=== PATIENT | female | born 1945 | race Caucasian/White ===

== ENCOUNTER 2022-08-31 15:38 | Inpatient (IN) | payer MEDICARE ==
[~2022-08-31] VITALS: Ht 154.9 cm; Wt 66.2 kg
[2022-08-31 18:59] LABS: BASOPHILS ABSOLUTE AUTO 0.04 K/mm3 (0.00-0.23); BASOPHILS PERCENT AUTO 0 % (0-2); EOSINOPHILS ABSOLUTE AUTO 0.14 K/mm3 (0.00-0.68); EOSINOPHILS PERCENT AUTO 2 % (0-6); Hematocrit 34.6 % (33.0-51.0); Hemoglobin 11.6 g/dL (11.5-16.0); IMMATURE GRAN ABSOLUTE AUTO 0.05 K/mm3 (0.00-0.10); IMMATURE GRAN PERCENT AUTO 1 % (0-1); LYMPHOCYTES ABSOLUTE AUTO 1.32 K/mm3 (0.84-5.20); LYMPHOCYTES PERCENT AUTO 14 % (21-46); MONOCYTES ABSOLUTE AUTO 0.54 K/mm3 (0.16-1.47); MONOCYTES PERCENT AUTO 6 % (4-13); Mean Corpuscular HGB 30.6 pg (26.0-34.0); Mean Corpuscular HGB Conc 33.5 g/dL (31.5-36.5); Mean Corpuscular Volume 91 fL (80-100); NEUTROPHILS ABSOLUTE AUTO 7.05 K/mm3 (1.96-9.15); NEUTROPHILS PERCENT AUTO 77 % (41-73); Platelet Count 279 K/mm3 (150-400); RDW Coefficient Variation 12.8 % (11.7-14.2); RDW Standard Deviation 42.8 fL (35.1-46.3); Red Blood Cell Count 3.79 M/mm3 (3.80-5.20); White Blood Cell Count 9.14 K/mm3 (4.00-11.30)
[2022-08-31 19:08] LABS: Bun/Creatinine Ratio 23.9 (12.0-20.0); Calcium, Blood 9.1 mg/dL (8.5-10.1); Creatinine, Blood 0.63 mg/dL (0.40-1.00); Potassium, Blood 4.2 mmol/L (3.5-5.5)
[2022-08-31 21:11] LABS: International Normalized Ratio 1.01; Prothrombin Time Results 10.6 Sec (9.7-11.5)
[2022-08-31] MEDS ORDERED: GABA100 PO (22:10)
[2022-08-31] MEDS ORDERED: EUTHYROX88 MCG PO (22:10)
[2022-09-01 05:31] LABS: BASOPHILS ABSOLUTE AUTO 0.06 K/mm3 (0.00-0.23); BASOPHILS PERCENT AUTO 1 % (0-2); EOSINOPHILS ABSOLUTE AUTO 0.14 K/mm3 (0.00-0.68); EOSINOPHILS PERCENT AUTO 2 % (0-6); Hematocrit 32.6 % (33.0-51.0); Hemoglobin 10.7 g/dL (11.5-16.0); IMMATURE GRAN ABSOLUTE AUTO 0.02 K/mm3 (0.00-0.10); IMMATURE GRAN PERCENT AUTO 0 % (0-1); LYMPHOCYTES PERCENT AUTO 16 % (21-46); MONOCYTES ABSOLUTE AUTO 0.53 K/mm3 (0.16-1.47); MONOCYTES PERCENT AUTO 8 % (4-13); Mean Corpuscular HGB Conc 32.8 g/dL (31.5-36.5); Mean Corpuscular Volume 91 fL (80-100); Mean Platelet Volume 9.7 fL (9.1-12.4); NEUTROPHILS ABSOLUTE AUTO 5.09 K/mm3 (1.96-9.15); NEUTROPHILS PERCENT AUTO 73 % (41-73); Platelet Count 259 K/mm3 (150-400); RDW Coefficient Variation 12.9 % (11.7-14.2); RDW Standard Deviation 43.3 fL (35.1-46.3); Red Blood Cell Count 3.57 M/mm3 (3.80-5.20); White Blood Cell Count 6.94 K/mm3 (4.00-11.30)
--- NOTE | 2022-09-01 05:41 | NUR ---
PLY SPLICER SUMMARY NEW ADMIT FROM THE ED BRITTNEE. PT ADMITTED FOR L FEMUR FX. BRUISING TO L HIP. PT HAS GRIMM CATH IN PLACE DRAINING YELLOW URINE. AAOX4 AND PLEASANT, PT STATES SHE JUST ARRIVED TO [place] YESTERDAY BECAUSE SHE IS MOVING HERE FROM [place] AND WAS GOING TO STAY WITH HER SISTER UNTIL HER ASSISTED LIVING HOME IS READY FOR HER TO MOVE IN. PT SISTER PICKED HER UP FROM THE [employer] AND TOOK HER HOME WHERE SHE FELL ON SOME CONCRETE STEPS WHIE WALKING INTO THE HOUSE. MEDICATED FOR PAIN X2 WITH DILAUDID 1 MG IV. PT IS DIABETIC AND HAS A ELECTRONIC BLOOD SUGAR MONITOR ON HER ABD. CBG'S CHECKED WITH HOSPITAL EQUIPTMENT ALSO AND HAVE BEEN 140-280'S. PT WAS WORRIED ABOUT POSSIBLY GOING TO LOW THROUGH THE NIGHT SO ASKED FOR AN APPLE JUICE BEFORE BED. HYPERTENSIVE WITH PAIN BUT IMPROVED WITH MEDICATION. OTHER THAN THAT VSS, WILL CONTINUE TO MONITOR.
[2022-09-01 06:06] LABS: Albumin, Blood 2.9 g/dL (3.4-5.0); Albumin/Globulin Ratio 0.9 (0.8-1.8); Bilirubin, Total 0.4 mg/dL (0.1-1.0); Bun/Creatinine Ratio 25.1 (12.0-20.0); Calcium, Blood 8.8 mg/dL (8.5-10.1); Creatinine, Blood 0.64 mg/dL (0.40-1.00); Globulin, Blood 3.1 g/dL (2.2-4.0); Potassium, Blood 4.3 mmol/L (3.5-5.5)
[2022-09-01 10:11] LABS: SARS-Cov-2 (COVID-19) PCR, MMC NEGATIVE (NEGATIVE)
[2022-09-01] MEDS ORDERED: DULO30 PO (11:16)
[2022-09-01] MEDS ORDERED: SPIR25 PO (11:17)
[2022-09-01] MEDS ORDERED: EZET10 PO (11:17)
[2022-09-01] MEDS ORDERED: TIZANIDINE HCL2 M1 PO (11:18)
[2022-09-01] MEDS ORDERED: HYDR1TAB94 PO (11:19)
[2022-09-01] MEDS ORDERED: INSULIN LI100 UNIT/6 SC (11:19)
[2022-09-01] MEDS ORDERED: TRESIBA100 UNIT/2 (11:22)
[2022-09-01] MEDS ORDERED: TRESIBA100 UNIT/2 SQ (11:22)
--- NOTE | 2022-09-01 14:00 | NUR ---
PATIENT CONTINUES TO HAVE N/V W/ NO RELIEF FROM ZORFRAN. UNABLE TO TAKE ANY PO INTAKE. BLOOD PRESSURE REMAINS HIGH IN 190'S OVER 90'S, HEART RATE ELEVATED FROM 110'S-130'S. PATENT REPORTS GETTINIG HOT THEN COLD FREQUENTLY, TEMP REMAINS STABLE. STATES SHE FEELS LIKE SHE FELT WHEN SHE WAS TOLD SHE HAD GASTROPERESIS. NOTIFIED DR SAGASTUME OF THIS INFO, GAVE ORDERS ENTERED.
--- NOTE | 2022-09-01 17:00 | NUR ---
PHENEGREN GIVEN IN HOPES TO IMPROVE N/V, UNSUCCESSFUL, PATIENT CONTINUED TO HAVE EMESIS. BLOOD PRESSURE REMAINED HIGH AFTER PHENGREN, IV HYDRALIZINE GIVEN ORDERED.
[2022-09-01 17:24] LABS: Beta-hydroxybutyrate 46.9 mg/dL (0.2-2.8); Bun/Creatinine Ratio 23.9 (12.0-20.0); Creatinine, Blood 0.54 mg/dL (0.40-1.00)
[2022-09-01] MEDS ORDERED: ONDA4ODT MM (17:55)
[2022-09-01] MEDS ORDERED: PROM12.5S PR (17:56)
[2022-09-01] MEDS ORDERED: HYDACE10B PO (17:57)
[2022-09-01] MEDS ORDERED: HUMALOG KW100 UNIT/1 SC (17:58)
[2022-09-01] MEDS ORDERED: Bentyl20 MG PO (17:59)
--- NOTE | 2022-09-01 18:45 | NUR ---
SHIFT SUMMARY PATIENT HAS LEFT HIP FRACTURE AND IS AWAITING SURGERY, HOPEFUL FOR TOMMORROW. PATIENT STRUGLED WITH N/V THROUGHOUT DAY, IV MEDICATION DID NOT SEEM TO IMPROVE N/V AT ALL. PATIENT REMAINS VERY PAINFUL, REPORTS PAIN MEDICATIOIN TO NOT HELP FOR VERY LONG. PATIENT ALSO HAS PAIN CONTRACT WITH MD IN [place]. FAMILY PLANS TO BRING MEDICAL RECORDS IN TOMORROW. CHILLS T/O AFTERNOON, NO FEVERS ASSOCIATED. CBG'S CONTINUED TO RISE T/O SHIFT, INSULIN ADJUSTED BY MD. PATIENT IS VERY EXHAUSTED FROM TODAY AND UPSET THAT SURGERY WAS DELAYED. PLAN TO BE NPO AT MIDNIGHT & HOPEFUL FOR SURGERY TOMORROW AM. CALLS APPROPRIATELY, WILL REPORT TO ONCOMING RN.
[2022-09-01 22:18] LABS: Bun/Creatinine Ratio 22.3 (12.0-20.0); Calcium, Blood 9.2 mg/dL (8.5-10.1); Creatinine, Blood 0.63 mg/dL (0.40-1.00); Potassium, Blood 4.5 mmol/L (3.5-5.5)
--- NOTE | 2022-09-02 04:33 | NUR ---
SUMMARY PT CONTINUES TO HAVE EPISODES OF FREQUENT N/V. PT EMESIS IS BROWNISH AND WITH PHLEGM. PT HAS HAD LITTLE PO INTAKE. 100% OF INTAKE HAS BEEN WATER ONLY THIS SHIFT. PT WAS FOUND TO BE SUSTAINING HRT IN 130'S. EKG PERFORMED AND DR SCHNEIDER WAS NOTIFIED. TELE WAS ORDERED WELL OT DOSE OF LOPRESSOR. PT WAS UNABLE TO TAKE PO LOPRESSOR DUE TO N/V. PT HRT DECREASED TO 110'S- 120'S. PT CONTINUED TO HAVE N/V. DR KIM CALLED AND ORDERED NG TUBE PLACED. PT UNABLE TO TOLERATE TUBE PLACEMENT. PT PAIN HAS BEEN MANAGED WELL. PT NAUSEA HAS BEEN MANAGED FOR SHORT PERIODS. WILL PASS ON TO DAY SHIFT RN. PT IS CONFUSED AT TIMES AND SLOW TO RESPOND. PT CURRENTLY RESTING AND BREATHING EASY. CALL LIGHT IN REACH AND BED ALARM ON.
[2022-09-02 04:37] LABS: BASOPHILS ABSOLUTE AUTO 0.01 K/mm3 (0.00-0.23); BASOPHILS PERCENT AUTO 0 % (0-2); EOSINOPHILS PERCENT AUTO 0 % (0-6); Hematocrit 35.5 % (33.0-51.0); Hemoglobin 11.5 g/dL (11.5-16.0); IMMATURE GRAN ABSOLUTE AUTO 0.06 K/mm3 (0.00-0.10); IMMATURE GRAN PERCENT AUTO 1 % (0-1); LYMPHOCYTES ABSOLUTE AUTO 0.34 K/mm3 (0.84-5.20); LYMPHOCYTES PERCENT AUTO 3 % (21-46); MONOCYTES ABSOLUTE AUTO 0.45 K/mm3 (0.16-1.47); MONOCYTES PERCENT AUTO 4 % (4-13); Mean Corpuscular HGB 29.8 pg (26.0-34.0); Mean Corpuscular HGB Conc 32.4 g/dL (31.5-36.5); Mean Corpuscular Volume 92 fL (80-100); Mean Platelet Volume 10.1 fL (9.1-12.4); NEUTROPHILS ABSOLUTE AUTO 9.28 K/mm3 (1.96-9.15); NEUTROPHILS PERCENT AUTO 92 % (41-73); Platelet Count 283 K/mm3 (150-400); RDW Coefficient Variation 12.9 % (11.7-14.2); RDW Standard Deviation 43.6 fL (35.1-46.3); Red Blood Cell Count 3.86 M/mm3 (3.80-5.20); White Blood Cell Count 10.14 K/mm3 (4.00-11.30)
[2022-09-02 04:53] LABS: Bun/Creatinine Ratio 22.8 (12.0-20.0); Creatinine, Blood 0.62 mg/dL (0.40-1.00); Potassium, Blood 4.4 mmol/L (3.5-5.5)
--- NOTE | 2022-09-02 06:23 | NUR ---
0600 PT REPORTS SOME CX PAIN. EKG OBTAINED AND SHOWED ST !125. DR KIM CALLED AND HE ORDERED MA N IV LOPRESSOR. PT TX FOR PAIN WITH GOOD RELIEF AND HRT REDUCED WITH LOPRESSOR. PT IS UNABLE TO TOLERATE ANY PO INTAKE.
--- NOTE | 2022-09-02 07:15 | NUR ---
PATIENT UNABLE TO ANSWER ORIENTATION QUESTIONS, WILL ONLY SAY "PAIN", "YEAH", "NORMAL", "HERE". PATIENT IS ALERT & AWAKES TO VERBAL STIMULI. BLOOD PRESSURE REMAINS HIGH ONE HOUR AFTER IV LOPRESSOR & DILAUDID GIVEN, 162/74, HEART RATE IN THE 110'S. BLOOD SUGAR REMIAINS HIGH. DR SAGASTUME NOTIFIED BY WINTERIZER AND REPORTED SHE WILL COME TO FLOOR TO SEE PATIENT SOON POSSIBLE.
--- NOTE | 2022-09-02 08:30 | NUR ---
DR SAGASTUME AT BEDSIDE STATED THAT SHE ADJUSTED PATIENTS NAUSEA ORDERS & STARTED REGLAN SCHEDULED IN HOPES TO IMPROVE THE HYPEREMESIS. ALSO GAVE VERBAL ORDERS TO DC Q2H CBG'S AND RESUME AC/HS CBG'S, OR Q6 IF NPO, AND INSULING PER SLIDIGN SCALE. VERBAL ORDER TO CONTINUE LONG ACTING INSULIN, 5UNITS SC AT 1800 EACH DAY. ORDERS ENTERED BY THIS RN.
--- NOTE | 2022-09-02 09:00 | NUR ---
DR ISLAS AT BEDSIDE, STATED HE IS NOT DOING SURGERY TODAY D/T HYPEREMESIS, HTN, & HYPERGLYCEMIA.
[2022-09-02 09:57] LABS: Source, Urine Foley catheter
[2022-09-02 10:28] LABS: Bilirubin, Urine Neg (Neg); Blood, Urine 3+ (Neg); Glucose Qualitative, Urine 4+ (Neg); Ketones, Urine 4+ (Neg); Leukocyte Esterase, Urine Neg (Neg); Nitrite, Urine Neg (Neg); Protein, Urine 1+ (Neg); Urobilinogen, Urine NORM (Normal)
[2022-09-02 10:43] LABS: Appearance, Urine Clear (Clear); Color, Urine Pale Yellow (P-Yellow)
[2022-09-02 10:44] LABS: Bacteria Rare /hpf; Squamous Epithelial Cells Not Seen /hpf (Few); White Blood Cells, Urine 0-2 /hpf (0-5)
[2022-09-02 11:52] LABS: Magnesium, Blood 1.6 mg/dL (1.6-2.4)
[2022-09-02 11:53] LABS: Albumin/Globulin Ratio 0.9 (0.8-1.8); Bilirubin, Total 0.5 mg/dL (0.1-1.0); Bun/Creatinine Ratio 21.9 (12.0-20.0); Creatinine, Blood 0.59 mg/dL (0.40-1.00); Globulin, Blood 3.5 g/dL (2.2-4.0); Potassium, Blood 4.3 mmol/L (3.5-5.5); Total Protein, Blood 6.5 g/dL (6.4-8.2)
--- NOTE | 2022-09-02 13:12 | NUR ---
FOUND BOTTLE OF MEDICATION LABLED ANURAG AT PATIENTS BEDSIDE WITH PRIMARY RN WHILE PROVIDING CARE FOR PATIENT. PLACED PATIENT LABEL ON MEDICATIONS AND TOOK TO PHARMACY FOR STORAGE. RECEIPT AND COPY OF RECEIPT PLACED IN CHART.
--- NOTE | 2022-09-02 13:20 | NUR ---
PATIENT REPOSITIONED RECENTLY AND BEGAN SLEEPING COMFORTABLY. PATIENT APPEARS TO BE VERY APNEIC, OPENS EYES TO VERBAL STIMULI BUT ONLY FOR A SECOND. DOES NOT VERBALLY RESPOND TO ANY QUSTIONS. UPPER EXTREMITIES ARE EXTREMELY LIMP WHEN LIFTED. BLE NOT LIMP BUT DOES NOT APPEAR IN ANY PAIN WHEN FRACTURED LEG IS MOVED. O2 SATS DROPPING TO LOW 80'S HIGH 70'S. 2 L O2 PLACED AND O2 SATS IMPROVED TO LOW 90'S. MOLECULAR TECHNOLOGIST PRESENT WITH THIS RN, CALLED DR SAGASTUME TO UPDATE ON STATUS. DR SAGASTUME STATED SHE WOULD ENTER ORDERS ACCORDINGLY.
[2022-09-02 14:11] LABS: Base Excess Venous -4.4 mmol/L; Bicarbonate Venous 21.5 mmol/L (24.0-30.0); PCO2 Venous 28.8 mmHg (38-42); pH Blood Venous 7.44 (7.34-7.37)
--- NOTE | 2022-09-02 18:05 | NUR ---
SHIFT SUMMARY PATIENT IS AWAITING FIXATION OF HER LEFT HIP FX STILL, SURGERY DELAYED D/T HYPEREMESIS, HTN, TACHYCARDIA, HYPERGLYCEMIA, & POTENTIAL OPIOD WITHDRAWAL. PATIENT HAS BEEN ALERT BUT COMPLETELY DISORIENTED MOST OF THE SHIFT, UNABLE TO ANSWER ANY ORIENTATION QUESTIONS. PATIENT DID HAVE ONE EPISODE OF BEING DIFFICULT TO AROUSE, GAVE NARCAN, SEE NOTE. PATIENT HAS IMPROVED SOMEWHAT SINCE THEN. BLOOD PRESSURES HAVE IMPROVED, BLOOD SUGAR IS TRENDING DOWN. PATIENT WILL TAKE PILLS IF CRUSHED IN PUDDING OR APPLESAUCE, BUT WILL NOT SWALLOW WHOLE, WILL ALSO DRINK WATER BUT IS UNINTERESTED IN REGULAR FOOD. PATIENT GETS VERY AGITATED AT TIMES AND ATTEMPTS TO GET OUT OF BED PERSISTENTLY WHEN THIS HAPPENS, IT APPEARS THAT SHE IS IN PAIN AND HAS IMPROVED AFTER PAIN MEDICATION HAS BEEN GIFEN. POWERGLIDE TO JOS PLACED THIS AM, IVF RUNNING AT 125/ HR. CALL LIGHT IN REACH ALTHOUGH HAS NOT BEEN MARIA C TO DEMONSTRATE USE. WILL REPORT TO ONCOMING RN AT 1900.
[2022-09-03 04:27] LABS: BASOPHILS ABSOLUTE AUTO 0.01 K/mm3 (0.00-0.23); BASOPHILS PERCENT AUTO 0 % (0-2); EOSINOPHILS PERCENT AUTO 0 % (0-6); Hematocrit 35.6 % (33.0-51.0); Hemoglobin 11.2 g/dL (11.5-16.0); IMMATURE GRAN PERCENT AUTO 1 % (0-1); LYMPHOCYTES ABSOLUTE AUTO 0.66 K/mm3 (0.84-5.20); LYMPHOCYTES PERCENT AUTO 5 % (21-46); MONOCYTES ABSOLUTE AUTO 0.67 K/mm3 (0.16-1.47); MONOCYTES PERCENT AUTO 5 % (4-13); Mean Corpuscular HGB 29.2 pg (26.0-34.0); Mean Corpuscular HGB Conc 31.5 g/dL (31.5-36.5); Mean Corpuscular Volume 93 fL (80-100); Mean Platelet Volume 9.6 fL (9.1-12.4); NEUTROPHILS ABSOLUTE AUTO 12.54 K/mm3 (1.96-9.15); NEUTROPHILS PERCENT AUTO 90 % (41-73); Platelet Count 306 K/mm3 (150-400); RDW Standard Deviation 44.5 fL (35.1-46.3); Red Blood Cell Count 3.83 M/mm3 (3.80-5.20); White Blood Cell Count 13.98 K/mm3 (4.00-11.30)
[2022-09-03 04:46] LABS: Albumin, Blood 2.7 g/dL (3.4-5.0); Albumin/Globulin Ratio 0.8 (0.8-1.8); Bilirubin, Total 0.7 mg/dL (0.1-1.0); Bun/Creatinine Ratio 36.2 (12.0-20.0); Calcium, Blood 8.4 mg/dL (8.5-10.1); Creatinine, Blood 0.61 mg/dL (0.40-1.00); Globulin, Blood 3.3 g/dL (2.2-4.0); Potassium, Blood 3.8 mmol/L (3.5-5.5)
--- NOTE | 2022-09-03 05:25 | NUR ---
SUMMARY PT CONTINUES TO BE CONFUSED AT TIMES. PT REMAINS IMPULSIVE AND TRIES TO GET OUT OF BED. PT PAIN HAS BEEN MANAGED WELL. PT HAS NOT HAD ANY EPISODES OF N/V NOTED. PTON TELE AND RATE BEEN 110'S- 120'S. PT CURRENTLY RESTING AND BREATHING EASY ON 2 LPM O2 VIA NC. CALL LIGHT IN REACH AND BED ALARM ON.
--- NOTE | 2022-09-03 13:16 | NUR ---
History, Chart, Medications and Allergies reviewed before start of procedure.Pre-Op teaching done. Pt verbalizes understanding. PT READY FOR SURGERY.
--- NOTE | 2022-09-03 15:28 | NUR ---
PT WITH MEPILEX DRESSING ON COCYX, AND LEFT HEEL AND FOOT. SKIN FRAGILE AND BRUSIED ON ARMS.
--- NOTE | 2022-09-03 19:28 | NUR ---
SHIFT SUMMARY PATIENT BEDREST AND ABLE TO ANSWER APPROPRIATELY IN AM. ELECTED FOR LEFT HIP FX REPAIR WITH DR GAINES TODAY. TACHY ON TELE, MEDICATED WITH PO AND IV METOPROLOL, SEE EMAR. CHEM BG COVERED WITH LOW SS AND LONG ACTING. MEDICATED FOR PAIN PER EMAR. RETURNED TO ROOM IN AFTERNOON. POST OP VSS. TOLERATING ADA DIET AND FLUIDS. LEFT HIP WITH GAUZE AND TAPE DRESSING C/D/I. GRIMM PATENT AND DRAINING. FAMILY MEMBERS ATTENTIVE AT BEDSIDE. REPORT GIVEN TO WEATHERSTRIP MACHINE OPERATOR RN.
--- NOTE | 2022-09-04 03:43 | NUR ---
SHIFT SUMMARY POD1 L HIP PINNING WITH GAUZE AND FOAM TAPE REMAIN CDI, NO DRAINAGE. PT REPORTS MODERATE L HIP PAIN AT MIDNIGHT. MEDICATED WITH NORCO (1TAB) AND TORADOL. PT REPORTS RELIEF ON L HIP PAIN BUT C/O STOMACH PAIN. PT REPORTS FEELING LIKE WANTING TO HAVE A BM. ATTEMP TO HAVE A BM OVERNIGHT WITH NO SUCCESS. PT HAS BEEN PASSING GAS. HYPO BT. SOFT AND TENDER ABD, MOD DISTENDED. PLAN TO REQUEST FOR BOWEL CARE FOR DAY SHIFT. TOLERATING PO INTAKE. DENIES NAUSEA AND VOMITING. PT HAS BEEN HTN. MEDICATED WITH HYDRLAZINE X1 DOSE WITH IMPROVEMENT. PT DENIES CHEST PAIN AND SOB. SHE IS ALERT AND ORIENTED X3. CBG AT 358 HS, CALLED DR. KIM, PT'S HUMALOG FROM LOW SS TO MED SS, AC/HS. GRIMM, OFF FLOOR, VOIDING ADEQUATE AMOUNT. CALL LIGHT WIHTIN REACH. WILL PROVIDER REPOT TO ONCOMIN NURSE.
[2022-09-04 04:39] LABS: BASOPHILS ABSOLUTE AUTO 0.01 K/mm3 (0.00-0.23); BASOPHILS PERCENT AUTO 0 % (0-2); EOSINOPHILS PERCENT AUTO 0 % (0-6); Hematocrit 34.6 % (33.0-51.0); Hemoglobin 11.3 g/dL (11.5-16.0); IMMATURE GRAN ABSOLUTE AUTO 0.06 K/mm3 (0.00-0.10); IMMATURE GRAN PERCENT AUTO 1 % (0-1); LYMPHOCYTES ABSOLUTE AUTO 0.32 K/mm3 (0.84-5.20); LYMPHOCYTES PERCENT AUTO 3 % (21-46); MONOCYTES PERCENT AUTO 7 % (4-13); Mean Corpuscular HGB 29.4 pg (26.0-34.0); Mean Corpuscular HGB Conc 32.7 g/dL (31.5-36.5); Mean Corpuscular Volume 90 fL (80-100); Mean Platelet Volume 9.7 fL (9.1-12.4); NEUTROPHILS ABSOLUTE AUTO 10.74 K/mm3 (1.96-9.15); NEUTROPHILS PERCENT AUTO 90 % (41-73); Platelet Count 335 K/mm3 (150-400); RDW Coefficient Variation 12.7 % (11.7-14.2); Red Blood Cell Count 3.84 M/mm3 (3.80-5.20); White Blood Cell Count 11.93 K/mm3 (4.00-11.30)
[2022-09-04 05:01] LABS: Calcium, Blood 8.2 mg/dL (8.5-10.1); Creatinine, Blood 0.55 mg/dL (0.40-1.00)
--- NOTE | 2022-09-04 14:35 | NUR ---
GRIMM CATHETER REMOVED AT THIS TIME.
--- NOTE | 2022-09-04 18:09 | NUR ---
SHIFT SUMMARY PATIENT WITHDRAWN AND UNMOTIVATED IN AM. WAS ABLE TO STAND AND TAKE STEPS TO RECLINER. LEFT HIP DRESSINGS C/D/I. ALFA REMOVED THIS SHIFT. MEDICATED FOR PAIN PER EMAR. HR STILL TACHY ON TELE. PO BETA SHARIF INCREASED TO BID. CHEM BGS STILL 200S, LONG ACTING DOSE INCREASED. PLAN FOR DISCHARGE TO SNF WHEN BED AVAILABLE.
[2022-09-05 05:53] LABS: Hematocrit 33.3 % (33.0-51.0); Hemoglobin 11.2 g/dL (11.5-16.0); Mean Corpuscular HGB 29.5 pg (26.0-34.0); Mean Corpuscular HGB Conc 33.6 g/dL (31.5-36.5); Mean Corpuscular Volume 88 fL (80-100); Mean Platelet Volume 9.8 fL (9.1-12.4); Platelet Count 308 K/mm3 (150-400); RDW Coefficient Variation 12.8 % (11.7-14.2); RDW Standard Deviation 40.6 fL (35.1-46.3); White Blood Cell Count 10.13 K/mm3 (4.00-11.30)
--- NOTE | 2022-09-05 05:58 | NUR ---
LATE ENTRY FOR 09/04/22 @ 2200: REPORT WAS RECIEVED PRIOR TO PATIENT ARRIVING TO THE UNIT VIA BED. PATIENT IS ORIENTED TO THE ROOM ABD CALL MARCELO. PATIENT IS A&OX4, REPORTS BACK PAIN 06/06. PRN NORCO WAS GIVEN.
--- NOTE | 2022-09-05 06:06 | NUR ---
SHIFT SUMMARY: PATIENT HAD POOR EFFECT FROM NORCO AND IV TORADOL WAS GIVEN WITH FAIR EFFECT. WITH IN TWO HOURS PATIENT WAS REPORTING BACK AND BILAT KNEE PAIN. NORCO AND ZANAFLEX WERE GIVEN. PATIENT REPORTED GOOD EFFECT. BP ARE ELEVATED, SEE VS, PATIENT IS ASYMPTOMATIC. UP TO THE BSC WITH ASSIST OF TWO, FWW AND GAIT BELT. PATIENT HAS NO NAUSEA AND HAS REFUSED ALL DOSES.
[2022-09-05 06:16] LABS: BAND PERCENT MAN 11 % (0-8); BASOPHILS PERCENT MAN 0 % (0-2); EOSINOPHILS PERCENT MAN 0 % (0-6); LYMPHOCYTES PERCENT MAN 1 % (21-46); MONOCYTES PERCENT MAN 7 % (4-13); NEUTROPHILS ABSOLUTE MAN 9.31 K/mm3 (1.96-9.15); SEG NEUTROPHILS PERCENT MAN 81 % (41-73); TOTAL CELLS COUNTED 100
[2022-09-05 06:38] LABS: Bun/Creatinine Ratio 60.9 (12.0-20.0); Calcium, Blood 8.5 mg/dL (8.5-10.1); Creatinine, Blood 0.49 mg/dL (0.40-1.00); Potassium, Blood 3.8 mmol/L (3.5-5.5)
--- NOTE | 2022-09-05 14:26 | NUR ---
1000 DR WRIGHT AT BEDSIDE,RN AIDED IN PT STANDING WHILE DR WRIGHT TOOK DOWN DRESSING, CLEANSED WITH HYDROGEN PEROXIDE AND REAPPLEID AQUACEL DRESSING, TO BE CHANGED Q5 DAYS AND PRN. PT'S SISTER AT BEDSIDE AND EDUCATED ABOUT PROCESS AND SHOWER OK, NO SOAKS.
--- NOTE | 2022-09-05 18:19 | NUR ---
SUMMARY- PT ALERT/ORIENTED X3-4- ORIENTED TO OWN ABILITY. USES CALL LIGHT. PT GOT UP WITH PT/OT INTO CHAIR FOR MEALS. AMBULATED AROUND ROOM WITH WALKER AND SBA/GB. PT DENIES PAIN IN L HIP BUT HAS CHRONIC LOW BACK AND KNEE PAIN, CONTROLLED WITH VICODIN APPROX Q4. BLOOD SUGARS MID-HIGH 200'S, COVERED WITH SSI. PLAN FOR SNF PLACEMENT PT ISN'T AT THE LEVEL TO GO HOME WITH SISTER, BUT IS MOTIVATED IN THERAPY.
--- NOTE | 2022-09-06 04:30 | NUR ---
SHIFT SUMMARY: PATIENT IS A&OX3, SLOW TO ANSWER QUESTIONS. VSS. REPORTING PAIN IN RIGHT KNEE, LOW BACK AND LEFT HIP 06/06. NORCO, ZANEFLEX AND TORADOL ARE GIVEN WITH GOOD EFFECT. PO INTAKE IS POOR. PLUS 2 EDEMA IN BILAT HANDS AND PEDAL/ANKLE. BM YESTERDAY WAS HARD FORMED. WILL GIVEN PRN DULCOLAX WITH AM MEDS.
[2022-09-06 08:56] LABS: Bun/Creatinine Ratio 65.7 (12.0-20.0); Creatinine, Blood 0.43 mg/dL (0.40-1.00); Potassium, Blood 3.6 mmol/L (3.5-5.5)
--- NOTE | 2022-09-06 17:41 | NUR ---
SHIFT SUMMARY; PATIENT VERY TIRED APPEARANCE TODAY. MOVES VERY SLOW WHEN TRYING TO ACCOMPLISH ANY ADL. SHE DOES WORK WITH PT AND OT. SISTER COMES TO ROOM AND IS VERY INVOLVED IN CARE. SHE IS CONCERNED THAT PATIENT NEEDS PAIN MEDICATIONS MORE OFTEN. PATIENT SNORING RESPS AT THE TIME SHE WANTED PAIN MEDICATION FOR PATIENT. SHE RECEIVED INSULIN AT BREAKFAST LUNCH BUT NOT DINNER. PATIENT MEDICATED LATE THIS AFTERNOON AFTER PT WORKED WITH HER. PER PATIENT SHE HAS "BONE ON BONE" IN HER BILATERAL KNEES AND NEEDS KNEE REPLACEMENTS. PATIENT HAS DIFFICULTY TRANSFERRING FROM BEDSIDE CHAIR TO RECLINER. SHE IS ASKED TO REMAIN UP FOR DINNER THEN WILL TRANSFER HER BACK TO BED. PATIENT AGREE'S. HER VITAL SIGNS ARE SLIGHTLY ELEVATED THIS PM PRIOR TO RECEIVING PAIN MEDICATION. BILATERAL HANDS ARE SWOLLEN AND PER PATIENT ARE HURTING. NOTED TO HAVE 2+EDEMA BOTH HANDS. HER KNEE'S ARE SLIGHTLY SWOLLEN AND HER ANKLES AND FEET SHOW +2 EDEMA. HER LUNGS ARE CLEAR BUT DIM THROUGHOUT. WILL CONTINUE TO MONITOR THIS PATIENT CLOSELY FOR ANY WANTS OR NEEDS THAT COME UP PRIOR TO SHIFT CHANGE AND REPORT OFF TO NOC SHIFT RN.
--- NOTE | 2022-09-07 04:46 | NUR ---
SHIFT SUMMARY: AT START OF SHIFT PATIENT HAD DIFFICULTY WAKING FROM THE CHAIR TO THE BED AND WAS DIAPHORETIC. BLOOD GLUCOSE WAS 209. A&OX3, VS WERE STABLE. PATIENT REQUESTED A SNACK WHICH WAS GIVEN, TOLERATED 100%. PATIENT THEN SLEPT FOR APPROXIMATELY AND HOUR. REPORTS PAIN IN R KNEE AND LOW BACK. PRN ZANAFLEX WAS GIVEN, TO EARLY FOR NORCO. @ 0000 PATIENT IS UNABLE TO SLEEP AND IS REQUESTING A TOPICAL PAIN RUB AND SLEEP AIDE. "THE PAIN IN MY BACK AND KNEES IS KEEPING ME AWAKE. CALL WAS PLACE TO [facility] AND ORDERS FOR BENGAY AND MELATONIN WERE OBTAINED AND MEDS WERE GIVEN WITH GOOD EFFECT.
--- NOTE | 2022-09-07 11:46 | NUR ---
Spiritual Care - Pt./Family Request Pt. is awake in bed and welcomes my visit. Pts. sister is present. Pt. is pleasant but unsettled about her hospitalization. Listen empathetically with a calming presence. Pt. displays evidence of being compliant, and having a strong family support system. Pts. sister displays evidence of being under stress because of family health issues at home. Pts. niece arrived during the visit. Prayed with Pt. and family. Pt. requested that this cartridge assembling machine adjuster visit again before the end of shift. Family verbalized gratitude for the spiritual care visit. Attempted to reach Patient Advocacy.
--- NOTE | 2022-09-07 16:37 | NUR ---
Follow up. Pt. is is bed. Pts. sister is present. Pt. displayed evidence of being tired after therapy. Family vrbalized graitude for the spiritual care follow up.
--- NOTE | 2022-09-07 18:44 | NUR ---
SHIFT SUMMARY; PATIENT WORKED WITH PT OT TODAY. UP TO CHAIR IN ROOM FOR 3 HOURS THEN RETURNED TO BED FOR BED BATH. PATIENT REFUSES PM MEAL SAYS SHE DOESN'T FEEL LIKE EATING TONIGHT. MEDICATED X 3 WITH INSULIN TODAY FOR ELEVATED CHEM BG'S. PER SHELIA A FACILITY HAS ACCEPTED HER AND SHE WILL GO MAYBE ON SATURDAY FOR SNF. LUNGS ARE CLEAR AND PATIENT IS MEDICATED X 2 FOR PAIN TODAY. HER VITAL SIGNS ARE STABLE AND SHE IS AO X 4. DRESSING CHANGE WITH AQUACEL TO LEFT HIP CLEAN DRY AND INTACT. MEPELEX TO BUTTOCKS FOR SMALL BLISTER INSIDE OLD SCAR FROM BED SORE.
--- NOTE | 2022-09-08 05:41 | NUR ---
TIE WORKER SUMMARY: A&Ox4. PLEASANT AND COOPERATIVE WITH CARE. C/O PAIN T/O NIGHT; ADMINISTERED PRN NORCO x3 AND PRN TIZANIDINE x2 WHEN AVAILABLE. FAIRLY WEAK; REQUIRED 2PA W/GB&FWW FOR TRANSFER TO BEDSIDE COMMODE AND STILL STRUGGLED TO KEEP BALANCE; ENCOURAGE PT TO PUSH THROUGH HER LEGS AND STAND TALL. LABS DRAWN THIS AM. VSS AND GLUCOSE STABLE. WILL REPORT TO ONCOMING RN.
[2022-09-08 07:35] LABS: Albumin, Blood 1.5 g/dL (3.4-5.0); Anion Gap 2 mmol/L (6-16); Blood Urea Nitrogen 13 mg/dL (8-24); Bun/Creatinine Ratio 29.3 (12.0-20.0); CO2, Blood 31 mmol/L (21-32); Calcium, Blood 8.3 mg/dL (8.5-10.1); Chloride, Blood 103 mmol/L (98-108); Creatinine, Blood 0.44 mg/dL (0.40-1.00); Glomerular Filtration Rate 101 (60-); Glucose, Blood 103 mg/dL (70-99); Phosphorus, Blood 1.4 mg/dL (2.5-4.9); Potassium, Blood 3.4 mmol/L (3.5-5.5); Sodium, Blood 136 mmol/L (136-145)
--- NOTE | 2022-09-08 16:30 | NUR ---
DAYSHIFT SUMMARY No acute changes to patient status this shift. Patient OOB worked with therapy this morning, 2x hands on assist for transfers. Dressing applied to left hip surgiical site. Dressing CDI, did not change this shift. [place] given PRN pain, PRN not effective. MD ordered home dose of [place] 10/325mg and tylenol for breakthrough pain. CBGs WNL, SSI administred. Vitals stable, will continue plan of care, awaiting discharge planning.
--- NOTE | 2022-09-09 04:24 | NUR ---
DETECTIVE SERGEANT SUMMARY: POD#5 LEFT HIP Fx PINNING/NAILING. DUPLEX DONE YESTERDAY D/T INCREASED PAIN AND WAS +POSTOP DVT. PETE INCREASED DOSAGE AND FREQUENCY OF LOVENOX. A&Ox4. PLEASANT AND COOPERATIVE WITH CARE. CALLS APPROPRIATELY AND IS ABLE TO COMMUNICATE HER NEEDS. WAITS FOR NURSE FOR ASSISTANCE. VSS. VOIDING USING BEDPAIN DUE TO URGENCY AND PAIN ASSOCIATED WITH TRANSFERING. GIVEN PRN NORCO x1 AND TIZANIDINE x2. C/O LEFT THIGH PAIN LAST NIGHT RELIEVED WITH WARM BLANKET APPLICATION AND TIZANIDINE. NO BM DURING THIS SHIFT. POWERGLIDE ALE PATENT, FLUSHES AND DRAWS. MEPILEX TO SACRUM FOR PROLONGED LAYING. WILL REPORT TO ONCOMING RN.
[2022-09-09 06:12] LABS: Albumin, Blood 1.5 g/dL (3.4-5.0); Anion Gap 5 mmol/L (6-16); Blood Urea Nitrogen 11 mg/dL (8-24); Bun/Creatinine Ratio 24.4 (12.0-20.0); CO2, Blood 30 mmol/L (21-32); Chloride, Blood 102 mmol/L (98-108); Creatinine, Blood 0.45 mg/dL (0.40-1.00); Glomerular Filtration Rate 101 (60-); Glucose, Blood 61 mg/dL (70-99); Phosphorus, Blood 2.1 mg/dL (2.5-4.9); Potassium, Blood 3.6 mmol/L (3.5-5.5); Sodium, Blood 137 mmol/L (136-145)
--- NOTE | 2022-09-09 06:21 | NUR ---
PT'S DEXCOM GLUCOSE MONITOR ALARMED HER AT 0500 THAT HER GLUCOSE WAS 55. GIVEN 6oz APPLE JUICE AND FIFTEEN MINUTES LATER GLUCOSE WAS 45. GIVEN LAILA CRACKERS AND PEANUTBUTTER AND FIFTEEN MINUTES LATER WAS UP TO 55 AND CONTINUING TO GO UP.
--- NOTE | 2022-09-09 11:11 | NUR ---
Patient continues to c/o severe pain in left hip, medicated with Roberts PRN. Started Xarelto for DVT this AM. Hypoglycemic over night, this morning CBG 101, no SSI insulin needed. Right hand edematous, patient reports pain in hand, difficult to open/close hand. Left Hand also swollen. DVT identified in LLE, left calf/ warm to the touch, RLE normal temperature. Patient moved into a different medical room outside [facility]. Report given to RN assuming care.
--- NOTE | 2022-09-09 20:08 | NUR ---
SHIFT SUMMARY- PT TRANSFERED TO MAIN FLOOR FROM [facility]. SHE HAS CALLED APPROPRIATELY, BED ALARM IS SET FOR SAFETY, PT HAS NOT ATTEMPTED TO GET OUT OF BED AT ALL. PT HAS BEEN MEDICATED FOR PAIN T/O THE DAY. PG TO JOS IS PATENT AND SL. PT HAS BEEN REPOSITIONED FREQUENTLY T/O THE DAY, SHE HAS A SMALL OPEN SPOT ON HER TAIL BONE THAT IS THE SIZE OF A PIN HEAD. PLACED A NEW MEPILEX OVER THE AREA TODAY. BEDSIDE REPORT COMPLETED, NIGHT RN ASSISTED TO REPOSITION THE PT AND SHE WAS MEDICATED FOR PAIN AT THAT TIME. PASSED ALL ON TO NIGHT RN IN REPORT.
[2022-09-10 05:26] LABS: Albumin, Blood 1.4 g/dL (3.4-5.0); Anion Gap 5 mmol/L (6-16); Blood Urea Nitrogen 12 mg/dL (8-24); Bun/Creatinine Ratio 25.9 (12.0-20.0); CO2, Blood 31 mmol/L (21-32); Calcium, Blood 7.8 mg/dL (8.5-10.1); Chloride, Blood 97 mmol/L (98-108); Creatinine, Blood 0.46 mg/dL (0.40-1.00); Glomerular Filtration Rate 100 (60-); Glucose, Blood 137 mg/dL (70-99); Phosphorus, Blood 2.6 mg/dL (2.5-4.9); Potassium, Blood 4.5 mmol/L (3.5-5.5); Sodium, Blood 133 mmol/L (136-145)
--- NOTE | 2022-09-10 06:43 | NUR ---
SHIFT SUMMARY: SHIFT SUMMARY: Pt A/Ox4 and call light appropriate. Overnight pt had c/o severe pain in her LLE. PRN [place] given x2, as well as tylenol and zanaflex x2. She denies numbness/tingling in her LLE. She did have c/o burning pain in both heels, per her request utilized bengay cream. Held her 2100 dose of metoprolol as BP was 105/50. Later in the shift her BP was 78/41- leigh CHILDRESS, 1000mL bolus given. recheck BP 110/53. hgb came back at 11.2 and glucose 137. Pt repostioned as tolerated throughout the night. Purewick in place for voiding needs. Encouraged pt to attempt to stand at side of bed today.
--- NOTE | 2022-09-10 18:19 | NUR ---
SHIFT SUMMARY PT AxOx4. PLEASANT AND COOPERATIVE WITH CARE. VISITORS IN TODAY. PT WORKED WITH PHYSICAL/OCCUPATIONAL THERAPY THIS SHIFT AND WAS ABLE TO GET UP OUT OF BED FOR THE FIRST TIME IN 3 DAYS. PT SAT IN CHAIR FOR A COUPLE HOURS BEFORE REQUESTING TO RETURN TO BED BECAUSE SHE WAS TIRED. PT WAS MEDICATED FOR PAIN x2. VITALS REVIEWED. PT IS EXPECTING TO DC TO SNF IN [place] ON SATURDAY. PT DENIES ANY NEEDS AT THIS TIME. CALL LIGHT IN REACH.
--- NOTE | 2022-09-11 04:32 | NUR ---
SHIFT SUMMARY: Pt A/Ox4 and call light appropraite. No events overnight. Pt had c/o pain throughout the shift, she recieved PRN [place], and zanaflex. She denies numbness/tingling in her LLE. Dressing is CDI. Purewick utilized overnight for voiding needs.
--- NOTE | 2022-09-11 11:43 | NUR ---
Pt. is awake in bed and welcomes my visit. Pt. is pleasant and verbalizes gratitude for getting a room change. Listen empathetically with a calming presence and ask theraputic questions. Pt. displays evidence of being engaged and responsive to treatment. Facilitate a Life review. Prayed with Pt. Pt. verbalizes gratitude for the spiritual care visit.
[2022-09-11 15:54] LABS: SARS-Cov-2 (COVID-19) Antigen Negative (NEGATIVE)
--- NOTE | 2022-09-11 17:58 | NUR ---
SHIFT SUMMARY: PATIENT ALERT AND ORIENTED X4. PATIENT C/O PAIN 3 TIMES DURING THE SHIFT. I GAVE HER A DOSE OF NORCO AND TYLENOL TO HELP WITH THE PAIN IN HER LEFT HIP. PT SPENT A MAJORITY OF HER DAY PREPARING FOR HER DISCHARGE TOMORROW. HER SISTER AND MOTHER WERE HERE TO VISIT AND GO OVER PLANS OF DISCHARGE. PUREWICK IN PLACE FOR VOIDING NEEDS. PT IS COMPLIANT WITH THE CARE PROVIDED TO HER. BED IN LOWEST POSITION. CALL LIGHT IN REACH. WILL CONTINUE TO MONITOR.
--- NOTE | 2022-09-12 05:18 | NUR ---
SHIFT SUMMARY NOC PT A/OX4. PT PLEASANT AND COOPERATIVE WITH CARE. PT HAD FIRST BM IN 6 DAYS AROUND 0445. DULCOLAX PT WAS ORDERED BUT NOT NEEDED. PT HAS PUREWICK WHICH IS PATENT AND SUCTIONING. IT WAS CHANGED AROUND 0500 DUE TO BEING SOILED. PT HAD C/O PAIN IN LEFT HIP AND MEDICATED PER EMAR. PT MEPILEX DRESSIN ON COCCYX WAS REPLACED. PT HAS EXCORIATION IN GROIN FOLDS BILATERALLY. BARRIER CREAM WAS APPLIED. PT PG IN JOS DRESSING CHANGED. PG IS PATENT AND DRAWS BLOOD. PT IS AWAITING SNF IN [facility] ON 09/12/22. PT IS CURRENTLY RESTING WITH BED RAILS UP, BED IN LOWEST POSITION, AND CALL LIGHT WITHIN REACH.
[2022-09-12] MEDS ORDERED: BISA5EC PO (10:45)
[2022-09-12] MEDS ORDERED: MELA3 PO (10:45)
[2022-09-12] MEDS ORDERED: DOCUZEN 8.6-501 EACH PO (10:45)
[2022-09-12] MEDS ORDERED: METSALMENC TOP (10:47)
[2022-09-12] MEDS ORDERED: METO25ER PO (10:48)
[2022-09-12] MEDS ORDERED: XARELTO20 MG PO (10:50)
--- NOTE | 2022-09-12 11:27 | NUR ---
DISCHARGE NOTES: PT DISCHARGED VIA STRETCHER AND IS GOING TO A SNF IN [place]. DISCHARGE PACKET WAS GIVEN TO TRANSPORTERS. PT HAD A LARGE, LOOSE BOWEL MOVEMENT PRIOR TO DISCHARGE. SHE RECEIVED HER PRN NORCO AND TIZANIDINE. PT'S HOME MEDICATION, WHICH INCLUDED HER NORCO AND INSULIN, WERE GIVEN TO SISTER TO TAKE HOME. PT WAS IN NO ACUTE DISTRESS PRIOR TO DISCHARGE AND WAS THANKFUL FOR THE CARE PROVIDED TO HER.
== END 2022-09-12 11:30 | DRG 481 ==
LOC: ER 15:38 → MEDS 19:08 → SURS 19:08 → MEDS 09-04 21:45
PROVIDERS: Family Medicine; Internal Medicine; Orthopaedic Surgery; Student in an Organized Health Care Education/Training Program; ADMIT Internal Medicine
PROC: 0QH734Z Insertion of Internal Fixation Device into Left Upper Femur, Percutaneous Approach (ICD-10-PCS; principal; 2022-09-03 13:00)
DX: S72.002A Fracture of unspecified part of neck of left femur, initial encounter for closed fracture (principal); E87.1 Hypo-osmolality and hyponatremia; I82.462 Acute embolism and thrombosis of left calf muscular vein; E03.9 Hypothyroidism, unspecified; R09.02 Hypoxemia; E87.6 Hypokalemia; E83.39 Other disorders of phosphorus metabolism; E11.649 Type 2 diabetes mellitus with hypoglycemia without coma; E88.09 Other disorders of plasma-protein metabolism, not elsewhere classified; M54.9 Dorsalgia, unspecified; K31.84 Gastroparesis; E11.42 Type 2 diabetes mellitus with diabetic polyneuropathy; R00.0 Tachycardia, unspecified; N20.0 Calculus of kidney; G89.4 Chronic pain syndrome; L89.159 Pressure ulcer of sacral region, unspecified stage; E11.43 Type 2 diabetes mellitus with diabetic autonomic (poly)neuropathy; E11.65 Type 2 diabetes mellitus with hyperglycemia; G47.33 Obstructive sleep apnea (adult) (pediatric); R11.2 Nausea with vomiting, unspecified; I95.9 Hypotension, unspecified; I10 Essential (primary) hypertension; W18.30XA Fall on same level, unspecified, initial encounter; B95.2 Enterococcus as the cause of diseases classified elsewhere; M79.89 Other specified soft tissue disorders; M25.50 Pain in unspecified joint; Z20.822 Contact with and (suspected) exposure to COVID-19; Z96.611 Presence of right artificial shoulder joint; B96.20 Unspecified Escherichia coli [E. coli] as the cause of diseases classified elsewhere; E86.9 Volume depletion, unspecified; Z96.612 Presence of left artificial shoulder joint; Z88.8 Allergy status to other drugs, medicaments and biological substances; Z99.81 Dependence on supplemental oxygen; Z79.891 Long term (current) use of opiate analgesic; Z79.899 Other long term (current) drug therapy; Z87.81 Personal history of (healed) traumatic fracture; Z79.4 Long term (current) use of insulin
CPT/HCPCS: 36415; 51702; 71045; 73502; 73700; 80048; 80053; 80069; 81001; 82010; 82803; 82947; 83036; 83735; 83880; 84443; 85025; 85610; 85730; 86850; 86900; 86901; 87077; 87086; 87186; 87426; 93005; 93010; 93971; 94762; 96374; 97110; 97116; 97162; 97166; 97530; 97535; 99285-25; A9270; C1713; C1751; C1769; C9803; J0360; J0690; J0696; J1100; J1170; J1650; J1815; J1885; J2250; J2310; J2370; J2405; J2550; J2704; J2765; J3010; J3370; J7030; J7120; U0004

== ENCOUNTER 2022-12-30 11:40 | Emergency (ER) | payer MEDICARE ==
[~2022-12-30] VITALS: Ht 154.9 cm; Wt 56.7 kg
[~2022-12-30 11:40] MED LIST: BISA5EC PO; Bentyl20 MG PO; DOCUZEN 8.6-501 EACH PO; DULO30 PO; EUTHYROX88 MCG PO; EZET10 PO; GABA100 PO; HUMALOG KW100 UNIT/1 SC; HYDACE10B PO; HYDR1TAB94 PO; INSULIN LI100 UNIT/6 SC; MELA3 PO; METO25ER PO; METSALMENC TOP; ONDA4ODT MM; PROM12.5S PR; SPIR25 PO; TIZANIDINE HCL2 M1 PO; TRESIBA100 UNIT/2; TRESIBA100 UNIT/2 SQ; XARELTO20 MG PO
[2022-12-30 12:40] LABS: BASOPHILS ABSOLUTE AUTO 0.07 K/mm3 (0.00-0.23); BASOPHILS PERCENT AUTO 1 % (0-2); EOSINOPHILS PERCENT AUTO 0 % (0-6); Hematocrit 30.2 % (33.0-51.0); Hemoglobin 9.7 g/dL (11.5-16.0); IMMATURE GRAN ABSOLUTE AUTO 0.04 K/mm3 (0.00-0.10); IMMATURE GRAN PERCENT AUTO 0 % (0-1); LYMPHOCYTES ABSOLUTE AUTO 0.66 K/mm3 (0.84-5.20); LYMPHOCYTES PERCENT AUTO 6 % (21-46); MONOCYTES ABSOLUTE AUTO 0.19 K/mm3 (0.16-1.47); MONOCYTES PERCENT AUTO 2 % (4-13); Mean Corpuscular HGB 23.6 pg (26.0-34.0); Mean Corpuscular HGB Conc 32.1 g/dL (31.5-36.5); Mean Corpuscular Volume 74 fL (80-100); Mean Platelet Volume 8.8 fL (9.1-12.4); NEUTROPHILS ABSOLUTE AUTO 11.02 K/mm3 (1.96-9.15); NEUTROPHILS PERCENT AUTO 92 % (41-73); Platelet Count 510 K/mm3 (150-400); RDW Coefficient Variation 19.5 % (11.7-14.2); RDW Standard Deviation 51.5 fL (35.1-46.3); Red Blood Cell Count 4.11 M/mm3 (3.80-5.20); White Blood Cell Count 11.98 K/mm3 (4.00-11.30)
[2022-12-30 12:51] LABS: Albumin, Blood 3.2 g/dL (3.4-5.0); Albumin/Globulin Ratio 0.6 (0.8-1.8); Bilirubin, Total 0.4 mg/dL (0.1-1.0); Calcium, Blood 10.1 mg/dL (8.5-10.1); Creatinine, Blood 0.61 mg/dL (0.40-1.00); Globulin, Blood 5.2 g/dL (2.2-4.0); Potassium, Blood 3.3 mmol/L (3.5-5.5); Total Protein, Blood 8.4 g/dL (6.4-8.2)
[2022-12-30 15:20] LABS: Source, Urine Fem Cath
[2022-12-30 15:30] LABS: Appearance, Urine Hazy (Clear); Bilirubin, Urine Neg (Neg); Blood, Urine 2+ (Neg); Glucose Qualitative, Urine 2+ (Neg); Ketones, Urine 2+ (Neg); Leukocyte Esterase, Urine 2+ (Neg); Nitrite, Urine Neg (Neg); Protein, Urine 2+ (Neg); Specific Gravity, Urine 1.015 (1.003-1.022); Urobilinogen, Urine NORM (Normal)
[2022-12-30 15:40] LABS: Color, Urine Pale Yellow (P-Yellow)
[2022-12-30 15:43] LABS: Bacteria Many /hpf; Mucus Light (0-Heavy); Squamous Epithelial Cells Rare /hpf (Few); Transitional Epithelial Cells Rare /hpf (0-Rare)
[2022-12-30] MEDS ORDERED: COMPAZINE10 MG PO (15:43)
[2022-12-30] MEDS ORDERED: ONDA4ODT MM (15:43)
[2022-12-30 15:44] LABS: Amorphous Light (0-Heavy)
[2022-12-30] MEDS ORDERED: CEPH500 PO (16:13)
[2022-12-30] MEDS ORDERED: Percocet 5-3251 EACH PO (16:15)
== END 2022-12-30 18:00 | disposition home or self-care (01) ==
LOC: ER 11:40
PROVIDERS: Emergency Medicine; Physician Assistant
DX: N13.2 Hydronephrosis with renal and ureteral calculous obstruction (principal); E10.9 Type 1 diabetes mellitus without complications; Z88.8 Allergy status to other drugs, medicaments and biological substances; Z79.890 Hormone replacement therapy; Z79.899 Other long term (current) drug therapy; Z79.4 Long term (current) use of insulin; Z96.612 Presence of left artificial shoulder joint; Z96.611 Presence of right artificial shoulder joint
CPT/HCPCS: 36415; 70450; 74176; 80053; 81001; 84443; 84484; 85025; 87077; 87086; 87147; 87186; 93005; 93010; 96361; 96374; 96375; 96376; 99285-25; J0696; J1790; J2405; J3010; J7120

== ENCOUNTER 2022-12-31 08:03 | Inpatient (IN) | payer MEDICARE ==
[~2022-12-31] VITALS: Ht 154.9 cm; Wt 51.7 kg
[~2022-12-31 08:03] MED LIST changes: +CEPH500 PO; +COMPAZINE10 MG PO; +Percocet 5-3251 EACH PO
[2022-12-31 08:57] LABS: BASOPHILS ABSOLUTE AUTO 0.02 K/mm3 (0.00-0.23); BASOPHILS PERCENT AUTO 0 % (0-2); EOSINOPHILS PERCENT AUTO 0 % (0-6); Hemoglobin 8.8 g/dL (11.5-16.0); IMMATURE GRAN ABSOLUTE AUTO 0.04 K/mm3 (0.00-0.10); IMMATURE GRAN PERCENT AUTO 0 % (0-1); LYMPHOCYTES ABSOLUTE AUTO 0.78 K/mm3 (0.84-5.20); LYMPHOCYTES PERCENT AUTO 6 % (21-46); MONOCYTES ABSOLUTE AUTO 0.53 K/mm3 (0.16-1.47); MONOCYTES PERCENT AUTO 4 % (4-13); Mean Corpuscular HGB 23.3 pg (26.0-34.0); Mean Corpuscular HGB Conc 31.4 g/dL (31.5-36.5); Mean Corpuscular Volume 74 fL (80-100); NEUTROPHILS ABSOLUTE AUTO 12.38 K/mm3 (1.96-9.15); NEUTROPHILS PERCENT AUTO 90 % (41-73); Platelet Count 484 K/mm3 (150-400); RDW Coefficient Variation 20.4 % (11.7-14.2); RDW Standard Deviation 53.8 fL (35.1-46.3); Red Blood Cell Count 3.78 M/mm3 (3.80-5.20); White Blood Cell Count 13.75 K/mm3 (4.00-11.30)
[2022-12-31 09:18] LABS: Albumin, Blood 2.9 g/dL (3.4-5.0); Albumin/Globulin Ratio 0.6 (0.8-1.8); Bilirubin, Total 0.7 mg/dL (0.1-1.0); Bun/Creatinine Ratio 25.2 (12.0-20.0); Calcium, Blood 9.1 mg/dL (8.5-10.1); Creatinine, Blood 0.91 mg/dL (0.40-1.00); Globulin, Blood 4.7 g/dL (2.2-4.0); Potassium, Blood 3.9 mmol/L (3.5-5.5); Total Protein, Blood 7.6 g/dL (6.4-8.2)
[2022-12-31 09:21] LABS: Source, Urine Foley catheter
[2022-12-31 09:28] LABS: Appearance, Urine Clear (Clear); Bilirubin, Urine Neg (Neg); Blood, Urine 3+ (Neg); Color, Urine Yellow (P-Yellow); Glucose Qualitative, Urine 4+ (Neg); Ketones, Urine 4+ (Neg); Leukocyte Esterase, Urine 2+ (Neg); Nitrite, Urine Neg (Neg); Protein, Urine 2+ (Neg); Specific Gravity, Urine 1.015 (1.003-1.022); Urobilinogen, Urine NORM (Normal)
[2022-12-31 09:45] LABS: Bacteria Rare /hpf; Squamous Epithelial Cells Rare /hpf (Few)
--- NOTE | 2022-12-31 17:00 | NUR ---
TRANSFER BED RECEIVED AT [facility]. REPORT CALLED TO DANNA AT [phone]. REQUESTS CALL BACK WHEN PT LEAVES FACILITY.
--- NOTE | 2022-12-31 17:54 | NUR ---
DISCHARGE PT LEFT [facility]IA [facility] FOR TRANSPORT TO [facility]. REPORT GIVEN TO CREW AND ADDITIONAL QUESTIONS ADDRESSED. ALL BELONGINGS WITH FAMILY. PT LEFT AT 1735.
== END 2022-12-31 17:31 | disposition short-term general hospital (02) | DRG 690 ==
LOC: ER 08:03 → PCU 12:45
PROVIDERS: Emergency Medicine; ADMIT Family Medicine
PROC: 0T9B70Z Drainage of Bladder with Drainage Device, Via Natural or Artificial Opening (ICD-10-PCS; principal; 2022-12-31)
DX: N13.6 Pyonephrosis (principal); N17.9 Acute kidney failure, unspecified; E03.9 Hypothyroidism, unspecified; F41.9 Anxiety disorder, unspecified; F32.A Depression, unspecified; E10.65 Type 1 diabetes mellitus with hyperglycemia; D64.9 Anemia, unspecified; Z96.612 Presence of left artificial shoulder joint; Z96.611 Presence of right artificial shoulder joint; Z88.8 Allergy status to other drugs, medicaments and biological substances; Z79.4 Long term (current) use of insulin; Z79.899 Other long term (current) drug therapy; Z79.891 Long term (current) use of opiate analgesic; Z79.2 Long term (current) use of antibiotics; Z87.442 Personal history of urinary calculi; Z86.718 Personal history of other venous thrombosis and embolism
CPT/HCPCS: 36415; 51702; 80053; 81001; 82947; 83605; 85025; 87086; 93005; 93010; 96361-59; 96365-59; 96375-59; 96376-59; 99285-25; A9270; J0692; J0696; J2405; J3010; J7030

== ENCOUNTER → 2023-03-06 | Outpatient (CLI) | payer MEDICARE | END | disposition home or self-care (01) | LOC: PLD 08:09 → LAB SHORT 08:09 | DX: L60.2 Onychogryphosis (principal); B35.1 Tinea unguium | CPT/HCPCS: 88304; 88312 ==

== ENCOUNTER → 2023-03-28 | Outpatient (CLI) | payer MEDICARE | END | disposition home or self-care (01) | LOC: LAB SHORT 15:10 → LAB 15:10 | DX: R30.0 Dysuria (principal) | CPT/HCPCS: 87077; 87086; 87186 ==

== ENCOUNTER → 2023-04-09 | Outpatient (CLI) | payer MEDICARE ==
[2023-04-10 10:43] LABS: Stool Occult Bld Immuno 1 Negative (NEGATIVE)
== END | disposition home or self-care (01) ==
LOC: LAB SHORT 12:38 → LAB 12:38
PROVIDERS: Internal Medicine
DX: D50.9 Iron deficiency anemia, unspecified (principal)
CPT/HCPCS: 82274

== ENCOUNTER 2023-11-23 14:04 | Emergency (ER) | payer MEDICARE ==
[~2023-11-23] VITALS: Ht 152.4 cm; Wt 56.7 kg
[2023-11-23] MEDS ORDERED: Norco 10-325 T1 EACH PO (14:24)
[2023-11-23 15:18] LABS: BASOPHILS ABSOLUTE AUTO 0.05 K/mm3 (0.00-0.23); BASOPHILS PERCENT AUTO 1 % (0-2); EOSINOPHILS ABSOLUTE AUTO 0.01 K/mm3 (0.00-0.68); EOSINOPHILS PERCENT AUTO 0 % (0-6); Hematocrit 35.4 % (33.0-51.0); Hemoglobin 11.5 g/dL (11.5-16.0); IMMATURE GRAN ABSOLUTE AUTO 0.03 K/mm3 (0.00-0.10); IMMATURE GRAN PERCENT AUTO 0 % (0-1); LYMPHOCYTES ABSOLUTE AUTO 1.18 K/mm3 (0.84-5.20); LYMPHOCYTES PERCENT AUTO 14 % (21-46); MONOCYTES ABSOLUTE AUTO 0.61 K/mm3 (0.16-1.47); MONOCYTES PERCENT AUTO 7 % (4-13); Mean Corpuscular HGB 27.3 pg (26.0-34.0); Mean Corpuscular HGB Conc 32.5 g/dL (31.5-36.5); Mean Corpuscular Volume 84 fL (80-100); NEUTROPHILS ABSOLUTE AUTO 6.65 K/mm3 (1.96-9.15); NEUTROPHILS PERCENT AUTO 78 % (41-73); Platelet Count 224 K/mm3 (150-400); RDW Coefficient Variation 14.6 % (11.7-14.2); RDW Standard Deviation 44.5 fL (35.1-46.3); Red Blood Cell Count 4.21 M/mm3 (3.80-5.20); White Blood Cell Count 8.53 K/mm3 (4.00-11.30)
[2023-11-23 15:30] LABS: Albumin, Blood 3.8 g/dL (3.4-5.0); Bilirubin, Total 0.6 mg/dL (0.1-1.0); Bun/Creatinine Ratio 28.1 (12.0-20.0); Calcium, Blood 9.1 mg/dL (8.5-10.1); Creatinine, Blood 0.61 mg/dL (0.40-1.00); Globulin, Blood 3.8 g/dL (2.2-4.0); Total Protein, Blood 7.6 g/dL (6.4-8.2)
[2023-11-23 16:55] LABS: Source, Urine Voided
[2023-11-23 17:10] LABS: Appearance, Urine Clear (Clear); Bilirubin, Urine Neg (Neg); Blood, Urine 3+ (Neg); Glucose Qualitative, Urine 4+ (Neg); Ketones, Urine 2+ (Neg); Leukocyte Esterase, Urine Neg (Neg); Nitrite, Urine Neg (Neg); Protein, Urine 1+ (Neg); Urobilinogen, Urine NORM (Normal)
[2023-11-23 17:30] VITALS: BP 172/72
[2023-11-23 17:34] LABS: Color, Urine Pale Yellow (P-Yellow)
[2023-11-23 17:37] LABS: Bacteria Mod /hpf; Squamous Epithelial Cells Rare /hpf (Few); Transitional Epithelial Cells Rare /hpf (0-Rare); White Blood Cells, Urine 0-2 /hpf (0-5)
== END 2023-11-23 18:11 | disposition home or self-care (01) ==
LOC: ER 14:04
PROVIDERS: Emergency Medicine
DX: S09.90XA Unspecified injury of head, initial encounter (principal); W18.30XA Fall on same level, unspecified, initial encounter; E10.649 Type 1 diabetes mellitus with hypoglycemia without coma; Z88.8 Allergy status to other drugs, medicaments and biological substances; Z88.6 Allergy status to analgesic agent; Z79.899 Other long term (current) drug therapy; Z79.890 Hormone replacement therapy; Z79.4 Long term (current) use of insulin
CPT/HCPCS: 36415; 70450; 71045; 72125; 80053; 81001; 84484; 85025; 93005; 93010; 99285-25

== ENCOUNTER → 2023-12-09 | Outpatient (CLI) | payer MEDICARE ==
[~2023-12-09] MED LIST changes: +Norco 10-325 T1 EACH PO
[2023-12-09 13:39] LABS: Source, Urine Voided
[2023-12-09 14:29] LABS: Bacteria Mod /hpf; Squamous Epithelial Cells Few /hpf (Few); Transitional Epithelial Cells Rare /hpf (0-Rare)
== END ==
LOC: LAB SHORT 11:50 → LAB 11:50
PROVIDERS: Family Medicine
DX: R31.29 Other microscopic hematuria (principal)
CPT/HCPCS: 81015; 87086

== ENCOUNTER 2025-01-31 16:11 | Emergency (ER) | payer MEDICARE ==
[~2025-01-31] VITALS: Ht 152.4 cm; Wt 65.8 kg
[2025-01-31 16:27] VITALS: BP 122/105
== END 2025-01-31 19:13 | disposition home or self-care (01) ==
LOC: ER 16:11
DX: M79.622 Pain in left upper arm (principal); M25.512 Pain in left shoulder; T84.89XA Other specified complication of internal orthopedic prosthetic devices, implants and grafts, initial encounter; E10.9 Type 1 diabetes mellitus without complications; M41.9 Scoliosis, unspecified; Z86.718 Personal history of other venous thrombosis and embolism; Z88.8 Allergy status to other drugs, medicaments and biological substances; Z88.6 Allergy status to analgesic agent; Z79.4 Long term (current) use of insulin; Z79.899 Other long term (current) drug therapy; W18.39XA Other fall on same level, initial encounter
CPT/HCPCS: 70450; 73060; 73502; 99284-25